=== PATIENT | male | born 1985 | race Caucasian/White ===

== ENCOUNTER 2018-04-05 14:46 | Emergency (ER) | payer OTHER ==
--- NOTE | 2018-04-05 15:30 | ED Physician Documentation ---
PD HPI NVD - Stated complaint Stated Complaint: DIARRHEA - Chief complaint Chief Complaint: Abd Pain - History obtained from History obtained from: Patient - History of Present Illness Timing - onset: How many days ago (3-4) Timing - duration: Days (3-4) Timing - details: Abrupt onset, Still present Associated symptoms: Abdominal pain (cramping intermittent), Dizzy (feeling weak and some lightheaded but not near syncopal.), Loss of appetite. No: Fever , Near syncope / syncope Contributing factors: No: Sick contact, Bad food, Travel, Recent antibiotics Improved by: No: BM Worsened by: Eating Similar symptoms before: Has not had sx before Recently seen: Not recently seen Review of Systems Constitutional: reports: Myalgias. denies: Fever, Chills Nose: denies: Rhinorrhea / runny nose, Congestion Throat: denies: Sore throat Cardiac: denies: Chest pain / pressure, Palpitations Respiratory: denies: Dyspnea, Cough GI: reports: Abdominal Pain, Nausea, Diarrhea (frequent watery with brown/ yellow color to it. No blood. It is odorous.). denies: Vomiting : denies: Dysuria, Frequency Skin: denies: Rash, Lesions PD PAST MEDICAL HISTORY - Past Medical History Past Medical History: No - Past Surgical History Past Surgical History: Yes - Present Medications Home Medications: Ambulatory Orders Medication Instructions Recorded Confirmed Diphenoxylate/Atropine [Lomotil] 1 each PO QID PRN #15 tablet 04/05/18 Ondansetron Odt [Zofran] 4 mg TL Q6H PRN #15 tablet 04/05/18 - Allergies Allergies/Adverse Reactions: Allergies Allergy/AdvReac Type Severity Reaction Status Date / Time No Known Drug Allergies Allergy Verified 04/05/18 14:53 - Social History Does the pt smoke?: No Smoking Status: Never smoker Does the pt drink ETOH?: No Does the pt have substance abuse?: No - Immunizations Immunizations are current?: Yes PD ED PE NORMAL - Vitals Vital signs reviewed: Yes - General General: Alert and oriented X 3, No acute distress, Well developed/nourished - HEENT HEENT: Pharynx benign - Neck Neck: Supple, no meningeal sign, No adenopathy - Cardiac Cardiac: RRR, No murmur - Respiratory Respiratory: Clear bilaterally - Abdomen Abdomen: Soft, Non tender, Non distended, No organomegaly. No: Normal bowel sounds (hyperactive) - Male Male : Deferred - Rectal Rectal: Deferred - Back Back: No CVA TTP - Derm Derm: Normal color, Warm and dry - Extremities Extremities: No deformity, No tenderness to palpate - Neuro Neuro: Alert and oriented X 3, No motor deficit, Normal speech Results - Vitals Vitals: Oxygen O2 Source Room air - Labs Labs: Microbiology 04/05/18 17:10 Campylobacter Antigen Assay - Final Stool Stool Culture - Final NO SALMONELLA, SHIGELLA, E. COLI 0157, AEROMONAS, EDWARDSIELLA, PLESIOMONAS, YERSINIA, OR VIBRIO ISOLATED. NO SHIGA TOXIN 1 OR 2 DETECTED. 04/05/18 17:10 Clostridium difficile (PCR) - Final Stool Laboratory Tests 04/05/18 16:00 Sodium 136 Potassium 3.2 L Chloride 99 L Carbon Dioxide 27 Anion Gap 10.0 BUN 11 Creatinine 1.1 Estimated GFR (MDRD) 78 L Glucose 104 H Calcium 8.5 Total Bilirubin 1.7 H AST 23 ALT 15 Alkaline Phosphatase 42 Total Protein 7.5 Albumin 4.1 Globulin 3.4 Albumin/Globulin Ratio 1.2 Lipase 25 PD MEDICAL DECISION MAKING - ED course Complexity details: reviewed results, considered differential (copious diarrhea and some nausea, without persistent abd pain and no focal tenderness. Presume infectious diarrhea. ), d/w patient, other (stool studies had not resulted at the time of discharge (he gave stool sample late in ED stay and then it took a long time for it to run at lab). So we called him with Rx for Campy result ( Zithromax 500 daily for 3 days). ) Departure - Departure Disposition: 01 Home, Self Care Clinical Impression: Diarrhea Qualifiers: Diarrhea type: presumed infectious Qualified Code(s): R19.7 - Diarrhea, unspecified Condition: Stable Record reviewed to determine appropriate education?: Yes Instructions: ED Diarrhea Viral Follow-Up: [facility] [Provider Group] Prescriptions: Diphenoxylate/Atropine [Lomotil] 1 each PO QID PRN #15 tablet PRN Reason: Diarrhea Ondansetron Odt [Zofran] 4 mg TL Q6H PRN #15 tablet PRN Reason: Nausea / Vomiting Comments: Frequent fluids and regular food will actually improve the diarrhea as well. Use ondansetron if needed for nausea. Lomotil if needed for diarrhea. The stool cultures will result later tonight or tomorrow and we will call you if we need to institute an antibiotic. Most the time these are viral and self- limited over a couple of days. Recheck if persistent diarrhea despite medications and to tomorrow /the next day. Your potassium was a little bit low related to the diarrhea but it should improve as your diet normalizes. Discharge Date/Time: 04/05/18 18:40
[2018-04-05] MEDS ORDERED: SODIUM CHLORIDE 0.9% 1,000 ML IV ONE (15:50)
[2018-04-05] MEDS ORDERED: ONDANSETRON 4 MG/2 ML VIAL IVP STA (15:50)
[2018-04-05 16:20] LABS: ALBUMIN 4.1 g/dL (3.2-5.5); ALBUMIN/GLOBULIN RATIO 1.2 (1.0-2.2); BILIRUBIN,TOTAL 1.7 mg/dL (0.2-1.0); CALCIUM 8.5 mg/dL (8.5-10.3); CREATININE 1.1 mg/dL (0.6-1.2); TOTAL PROTEIN 7.5 g/dL (6.7-8.2)
[2018-04-05] MEDS ORDERED: DIPHENOX/ATROPINE 2.5/0.025 MG TABLET PO STA (17:17)
[2018-04-05] MEDS ORDERED: POTASSIUM BICARB 25 MEQ TABLET PO STA (17:40)
[2018-04-05] MEDS ORDERED: ONDANSETRON ODT 4 MG Prepack 2 TL PRN (18:12)
[2018-04-05 18:25] VITALS: BP 119/68
--- NOTE | 2018-04-06 10:36 | ED Physician Documentation ---
ED Addendum - Addendum Addendum: 04/06/18 10:35 chart accessed to assist pharmacy
== END 2018-04-05 18:40 | disposition home or self-care (01) ==
LOC: ED 14:46
DX: R19.7 Diarrhea, unspecified (principal); R11.0 Nausea
CPT/HCPCS: 36415; 80053; 83690; 87045; 87046; 87493; 96361; 96374; 99283; A9270